=== PATIENT | male | born 1965 | race Caucasian/White ===

== ENCOUNTER 2020-11-13 11:32 | Emergency (ER) | payer SELFPAY ==
[2020-11-13] MEDS ORDERED: IBUPROFEN600 MG PO (14:14)
[2020-11-13] MEDS ORDERED: CEPHALEXIN500 M1 PO (14:14)
[2020-11-13] MEDS ORDERED: BACTROBAN OINT22 GM EXT (14:14)
== END 2020-11-13 14:39 | disposition home or self-care (01) ==
LOC: ER1 11:32
DX: S61.212A Laceration without foreign body of right middle finger without damage to nail, initial encounter (principal); Z87.891 Personal history of nicotine dependence; W26.8XXA Contact with other sharp object(s), not elsewhere classified, initial encounter; Y92.69 Other specified industrial and construction area as the place of occurrence of the external cause; Y99.0 Civilian activity done for income or pay
CPT/HCPCS: 12001; 73130; 96372; 99283; J1885